=== PATIENT | female | born 1945 | race Caucasian/White ===

== ENCOUNTER 2019-12-28 10:19 | Outpatient (REF) | payer MEDICARE, SELFPAY ==
[2019-12-28 21:59] LABS: HCT 35.1 % (36.0-46.0); HGB 11.8 g/dL (11.2-15.7); MCH 31.6 pg (27.0-33.0); MCHC 33.6 % (32.0-36.0); MCV 94.1 fL (80-95); Platelet Count 223 10^3/uL (130-400); RBC 3.73 10^6/uL (3.93-5.22); RDW 12.3 % (11.7-14.6); RDW-SD 42.4 fL; WBC 6.39 10^3/uL (4.4-10.8)
[2019-12-28 22:15] LABS: Hemoglobin A1C 5.9 % (<5.7)
[2019-12-28 22:43] LABS: ALT 18 U/L (14-59); AST 17 U/L (15-37); Albumin 4.2 g/dL (3.4-5.0); Alkaline Phosphatase 46 U/L (46-116); Anion Gap 6.8 mmol/L (3-11); BUN 30 mg/dL (7-18); Bilirubin, Total 0.5 mg/dL (0.2-1.0); CO2 29.2 mmol/L (21.0-32.0); CREATININE 1.64 mg/dL (0.55-1.02); Calcium 9.7 mg/dL (8.5-10.1); Calculated LDL 119 mg/dL (<100); Chloride 100 mmol/L (98-107); Cholesterol 217 mg/dL (<200); Estimated GFR 30.46 (mL/min/1.73m2); Glucose 102 mg/dL (74-106); HDL Cholesterol 83 mg/dL (40-60); Potassium 4.4 mmol/L (3.5-5.1); Sodium 136 mmol/L (136-145); Total Protein 6.8 g/dL (6.4-8.2); Triglyceride 78 mg/dL (<150)
== END 2019-12-28 10:39 ==
LOC: NCHCN 10:19
PROVIDERS: PCP Family Medicine; Visit Provider Family Medicine
DX: I10 Essential (primary) hypertension (principal); E78.5 Hyperlipidemia, unspecified; N28.9 Disorder of kidney and ureter, unspecified; E66.09 Other obesity due to excess calories
CPT/HCPCS: 80053; 80061; 85027; 83036

== ENCOUNTER 2021-01-02 10:52 | Outpatient (REF) | payer MEDICARE, SELFPAY ==
[2021-01-02 22:19] LABS: Hemoglobin A1C 5.8 % (<5.7)
[2021-01-02 22:20] LABS: ALT 21 U/L (14-59); AST 15 U/L (15-37); Albumin 4.1 g/dL (3.4-5.0); Alkaline Phosphatase 54 U/L (46-116); Anion Gap 5.6 mmol/L (3-11); BUN 34 mg/dL (7-18); Bilirubin, Total 0.4 mg/dL (0.2-1.0); CO2 31.4 mmol/L (21.0-32.0); CREATININE 1.7 mg/dL (0.55-1.02); Calcium 9.1 mg/dL (8.5-10.1); Chloride 103 mmol/L (98-107); Estimated GFR 29.14 (mL/min/1.73m2); Glucose 105 mg/dL (74-106); Potassium 4.5 mmol/L (3.5-5.1); Sodium 140 mmol/L (136-145); Total Protein 6.5 g/dL (6.4-8.2)
== END 2021-01-02 10:53 | disposition home or self-care (01) ==
LOC: NCHCN 10:52
PROVIDERS: PCP Family Medicine; Visit Provider Family Medicine
DX: E11.9 Type 2 diabetes mellitus without complications (principal); I10 Essential (primary) hypertension
CPT/HCPCS: 80053; 83036

== ENCOUNTER 2022-03-21 16:17 | Outpatient (REF) | payer MEDICARE, SELFPAY ==
[2022-03-21 21:13] LABS: HGB 10.7 g/dL (11.2-15.7); MCH 31.7 pg (27.0-33.0); MCHC 33.4 % (32.0-36.0); MCV 95 fL (80-95); MPV 9.6 fL (8.0-11.0); Platelet Count 300 10^3/uL (130-400); RBC 3.38 10^6/uL (3.93-5.22); RDW 12.8 % (11.7-14.6); RDW-SD 44.9 fL; WBC 5.85 10^3/uL (4.4-10.8)
[2022-03-21 21:29] LABS: Iron 79 ug/dL (50-170); Total Iron Binding Capacity 302 ug/dL (250-450); Transferrin Sat 26 % (15-50)
[2022-03-21 21:54] LABS: ALT 22 U/L (14-59); AST 16 U/L (15-37); Albumin 3.7 g/dL (3.4-5.0); Alkaline Phosphatase 79 U/L (46-116); Anion Gap 8.1 mmol/L (3-11); BUN 18 mg/dL (7-18); Bilirubin, Total 0.4 mg/dL (0.2-1.0); CO2 27.9 mmol/L (21.0-32.0); CREATININE 1.2 mg/dL (0.55-1.02); Calcium 9.8 mg/dL (8.5-10.1); Chloride 96 mmol/L (98-107); Estimated GFR 46.33 (mL/min/1.73m2); Glucose 118 mg/dL (74-106); Sodium 132 mmol/L (136-145); Total Protein 6.7 g/dL (6.4-8.2); Vitamin B12 709 pg/mL (193-986)
== END 2022-03-21 16:18 | disposition home or self-care (01) ==
LOC: NCHCN 16:17
PROVIDERS: PCP Family Medicine; Visit Provider Family Medicine
DX: D64.9 Anemia, unspecified (principal); R53.1 Weakness; I10 Essential (primary) hypertension; N28.9 Disorder of kidney and ureter, unspecified; E87.1 Hypo-osmolality and hyponatremia; Z86.39 Personal history of other endocrine, nutritional and metabolic disease
CPT/HCPCS: 80053; 85027; 82607; 83540; 83550

== ENCOUNTER 2022-08-01 20:15 | Emergency (ER) | payer MEDICARE, SELFPAY ==
--- NOTE | 2022-08-01 20:15 | RT.EKG_ITS ---
APPROVED REPORT Exam: Resting ECG Reason for Exam: dizziness/HTN Patient Location: E HR:69 bpm ECG Measurements Heart Rate 69 AXIS [place] 172 P 79 QRSd 85 QRS 33 QT 400 T 52 QTc 428 Conclusion Sinus rhythm...normal P axis, V-rate 60- 99 sinus rhythm, normal axis, normal intevals, non ischemic
[2022-08-01 20:17] VITALS: BP 183/82; PULSE 74; RESP 18; TEMP 36.8; O2SAT 97
[2022-08-01 20:56] VITALS: BP 185/78; PULSE 75; RESP 14; O2SAT 96
[2022-08-01 21:09] LABS: Basophils % 0.5; Eosinophils % 3.3; HCT 34.3 % (36.0-46.0); HGB 11.3 g/dL (11.2-15.7); Lymphocytes % 23.9; MCH 30.9 pg (27.0-33.0); MCHC 32.9 % (32.0-36.0); MCV 94 fL (80-95); MPV 9.6 fL (8.0-11.0); Monocytes % 8.3; Neutrophils % 63.8; Platelet Count 222 10^3/uL (130-400); RBC 3.66 10^6/uL (3.93-5.22); RDW 13.2 % (11.7-14.6); RDW-SD 45.4 fL; WBC 6.14 10^3/uL (4.4-10.8)
[2022-08-01 21:10] LABS: Abs Immature Grans 0.01 10^3/uL (0.0-0.06); Absolute Basophil Count 0.03 10^3/uL (0.0-0.2); Absolute Lymphocyte Count 1.47 10^3/uL (1.2-3.4); Absolute Monocyte Count 0.51 10^3/uL (0.1-0.8); Absolute Neutrophil Count 3.92 10^3/uL (1.2-6.7); Immature Grans % 0.2
[2022-08-01] MEDS: Normal Saline 1,000 ML 1000 ML IV (21:10)
[2022-08-01 21:40] LABS: ALT 24 U/L (14-59); AST 18 U/L (15-37); Albumin 3.9 g/dL (3.4-5.0); Alkaline Phosphatase 57 U/L (46-116); Anion Gap 7.7 mmol/L (3-11); BUN 34 mg/dL (7-18); Bilirubin, Total 0.3 mg/dL (0.2-1.0); CO2 26.3 mmol/L (21.0-32.0); CREATININE 1.4 mg/dL (0.55-1.02); Calcium 9.2 mg/dL (8.5-10.1); Chloride 99 mmol/L (98-107); Estimated GFR 38.51 (mL/min/1.73m2); Glucose 113 mg/dL (74-106); Magnesium 1.8 mg/dL (1.8-2.4); Potassium 4.1 mmol/L (3.5-5.1); Sodium 133 mmol/L (136-145); Total Protein 7.2 g/dL (6.4-8.2); Troponin I < 50 ng/L (<or=60)
[2022-08-01 22:16] LABS: Bilirubin Negative (Negative); Blood Negative (Negative); Clarity Sl Cloudy (Clear); Glucose Negative (Negative); Ketones Negative (Negative); Leukocyte Esterase Small (Negative); Nitrite Negative (Negative); Urobilinogen 0.2 mg/dL (Up to 0.2); pH 5.5 (5-8)
--- NOTE | 2022-08-01 22:16 | ED.GENADUL_ITS ---
Discharge Plan Disposition Patient Disposition: Home Condition: Improving Discharge Details Clinical Impression: Acute dehydration Primary Care Provider: Lisa Don ED Provider: Nicky Romero Home Meds and New Rx's Prescriptions: Continued pravastatin 20 MG tablet 20 mg PO HS losartan 100 MG tablet 50 mg PO DAILY propranolol [Inderal XL] 120 MG capsule,extended release 24hr 160 mg PO DAILY benzonatate [Tessalon Perles] 100 MG capsule 100 mg PO QID PRN PRN (Reason: Cough) Qty: 15 0RF nitroglycerin 0.4 MG tablet, sublingual 0.4 mg Sublingual TID PRN PRN (Reason: Chest Pain) Qty: 25 0RF carvedilol 25 mg Tablet 25 mg PO BID Rx Instructions: must administer with a meal/food isosorbide dinitrate 30 mg Tablet 30 mg PO BID Rx Instructions: allow nitrate-free interval of 12-14 hrs per 24-hr period vit D3-folic [id number] 2,000-800-0.32 unit-mcg-mg Tablet PO fluticasone propionate 50 mcg/actuation [place],Suspension 1 spray INTRANASAL BID Rx Instructions: administer into each nostril Discharge Instructions Instructions: Dehydration (ED) Additional Instructions: Monitor your blood pressure and report to your primary care provider Continue your home medications as previously directed Referrals: Lisa Don [Primary Care Provider] - Medical Decision Making 76-year-old female patient After receiving 1 L of normal saline reporting her symptoms have completely resolved. She is safely really ambulated. Blood pressure noted to be elevated which is discussed with her she will continue to monitor continue her home medications as previously prescribed follow-up with primary care provider she will return here sooner for new or worsening symptoms Medical Records Medical records reviewed: Yes I reviewed the patient's medical records. Lab Data Lab results reviewed: Yes I reviewed the patient's lab results. Lab results narrative: Laboratory Results - last 24 hr 08/01/22 08/01/22 08/01/22 20:45 20:45 22:05 WBC 6.14 RBC 3.66 L Hgb 11.3 Hct 34.3 L MCV 94 MCH 30.9 MCHC 32.9 RDW 13.2 Plt Count 222 MPV 9.6 Immature Gran % 0.2 Neutrophils % 63.8 Lymphocytes % 23.9 Monocytes % 8.3 Eosinophils % 3.3 Basophils % 0.5 Nucleated RBC % 0.0 Absolute Neutrophils 3.92 Absolute Lymphocytes 1.47 Absolute Monocytes 0.51 Absolute Eosinophils 0.20 Absolute Basophils 0.03 Sodium 133 L Potassium 4.1 Chloride 99 Carbon Dioxide 26.3 Anion Gap 7.7 BUN 34 H Creatinine 1.4 H Est GFR (CKD-EPI 2020) 38.51 Glucose 113 H Calcium 9.2 Magnesium 1.8 Total Bilirubin 0.3 AST 18 ALT 24 Alkaline Phosphatase 57 Troponin I < 50 Total Protein 7.2 Albumin 3.9 Urine Color Yellow Urine Clarity Sl Cloudy Urine pH 5.5 Ur Specific [place] 1.010 Urine Protein Negative Urine Ketones Negative Urine Blood Negative Urine Nitrite Negative Urine Bilirubin Negative Urine Urobilinogen 0.2 Ur Leukocyte Esterase Small H Urine RBC Negative Urine WBC 10-20 H Ur Epithelial Cells Few Urine Crystals Negative Urine Bacteria Few Urine Casts Negative Urine Mucus Negative Ur Culture Indicated? Yes Urine Glucose Negative ECG Data Attestation: I personally reviewed and interpreted this ECG (s) as follows: (No acute ST segment changes) HPI General Mode of arrival: ambulatory . Date/Time Provider Initiated Documentation: 08/01/22 20:49 . Limitations to Documentation: no limitations . Information obtained by: patient . HPI Narrative: This is a 76-year-old female patient who worked outside all day long who has had feeling unsteady gait similar to a past history that she had many years ago associated with vertigo. She states that she has been having seasonal allergies and feels like her ears have been plugged. She takes a antihistamine for this. She has had no fever no chills no chest pain no shortness of breath no abdominal pain no nausea or vomiting Related Data Home Medications Medication Instructions Recorded Confirmed benzonatate 100 mg capsule 100 mg PO QID PRN PRN Cough ##15 08/03/13 (Anish Moreno) losartan 100 mg tablet 50 mg PO DAILY 08/03/13 08/03/13 nitroglycerin 0.4 mg sublingual 0.4 mg sublingual TID PRN PRN 08/03/13 tablet Chest Pain ##25 pravastatin 20 mg tablet 20 mg PO HS 08/03/13 08/03/13 propranolol 120 mg 160 mg PO DAILY 08/03/13 08/03/13 capsule,extended release 24 hr (Inderal XL) carvedilol 25 mg tablet 25 mg PO BID 08/01/22 08/01/22 fluticasone propionate 50 1 spray intranasal BID 08/01/22 08/01/22 mcg/actuation nasal spray,suspension isosorbide dinitrate 30 mg tablet 30 mg PO BID 08/01/22 08/01/22 vit D3-folic acid-vit B2-B6-B12 tab PO 08/01/22 2,000 unit-800 mcg-0.32 mg tablet Previous Rx's Medication Instructions Recorded benzonatate 100 mg capsule 100 mg PO QID PRN PRN Cough ##15 08/03/13 (Anish Moreno) nitroglycerin 0.4 mg sublingual 0.4 mg sublingual TID PRN PRN 08/03/13 tablet Chest Pain ##25 Allergies Allergy/AdvReac Type Severity Reaction Status Date / Time Penicillins Allergy Severe Agitation Unverified 08/01/22 21:06 prochlorperazine edisylate Allergy Severe Swelling/Ed Unverified 08/01/22 21:06 [From Compazine] haim prochlorperazine maleate Allergy Severe Swelling/Ed Unverified 08/01/22 21:06 [From Compazine] haim adhesive Allergy Unverified 08/01/22 21:06 bee venom protein (honey bee) Allergy Unverified 08/01/22 21:06 codeine Allergy Unverified 08/01/22 21:06 Iodinated Contrast Media Allergy Unverified 08/01/22 21:06 amlodipine AdvReac Unverified 08/01/22 21:06 chocolate flavor AdvReac Unverified 08/01/22 21:06 colchicine AdvReac Unverified 08/01/22 21:06 latex AdvReac Unverified 08/01/22 21:06 prochlorperazine AdvReac Unverified 08/01/22 21:06 [From Compazine] General Stated Complaint: Dizzy/Sync JACK: 3 Review of Systems All systems reviewed & are unremarkable except as noted in HPI and below PFSH All Active Problems (Updated 08/01/22 @ 22:25 by Nicky Romero NP) Acute dehydration (Acute) Social History Smoking/Tobacco Use Status: Never Smoking risk assessment performed?: Yes Alcohol Intake: former Drug use: Never Do you feel safe at home: Yes Do you feel safe in your relationship?: Yes Exam Const General: cooperative, healthy appearing, comfortable, no acute distress and well developed Nutritional Appearance: average body habitus Orientation: alert, awake and oriented x3 HENMT Head: normal to inspection, normocephalic and atraumatic Mouth: moist mucous membranes abnormal (Dry) Chest Chest: normal inspection of the chest Resp Effort & Inspection: normal respiratory effort Auscultation: clear to auscultation bilaterally Cardio Rate: regular rate Rhythm: regular rhythm GI Inspection: normal to inspection Palpation: soft Auscultation: normal bowel sounds Skin General skin exam: no rashes or lesions noted Neuro General: patient alert, patient awake, patient oriented x3 and no focal motor deficits Cognition: normal cognition Speech: speech normal Gait: normal gait Motor: muscle tone normal throughout Sensory Exam: no sensory deficits noted Extrem General: normal to inspection and full ROM Course Vital Signs Vital signs: Vital Signs Temperature 36.8 C 08/01/22 20:17 Pulse 74 08/01/22 20:17 Respiratory Rate 18 08/01/22 20:17 Blood Pressure 183/82 H 08/01/22 20:17 Pulse Oximetry 97 08/01/22 20:17 Temperature 36.8 C 08/01/22 20:17 Temperature Source Skin 08/01/22 20:17 Pulse 75 08/01/22 20:56 Respiratory Rate 14 08/01/22 20:56 Respiratory Effort Normal 08/01/22 20:36 Blood Pressure 185/78 H 08/01/22 20:56 Blood Pressure Position Sitting 08/01/22 20:17 Pulse Oximetry 96 08/01/22 20:56 Oxygen Delivery Method Room Air 08/01/22 20:56 Oxygen Flow Rate 0 08/01/22 20:56 Pain Level 0 08/01/22 20:17 Comment takes BP pills 10am and 10pm 08/01/22 20:17 Lab/Test Results Lab/Test Results: Laboratory Tests Range/Units 08/01/22 08/01/22 20:45 20:45 WBC (4.4-10.8) 10^3/uL 6.14 RBC (3.93-5.22) 10^6/uL 3.66 L Hgb (11.2-15.7) g/dL 11.3 Hct (36.0-46.0) % 34.3 L MCV (80-95) fL 94 MCH (27.0-33.0) pg 30.9 MCHC (32.0-36.0) % 32.9 RDW (11.7-14.6) % 13.2 Plt Count (130-400) 10^3/uL 222 MPV (8.0-11.0) fL 9.6 Immature Gran % 0.2 Neutrophils % 63.8 Lymphocytes % 23.9 Monocytes % 8.3 Eosinophils % 3.3 Basophils % 0.5 Nucleated RBC % (0.0-0.3) % 0.0 Absolute Neutrophils (1.2-6.7) 10^3/uL 3.92 Absolute Lymphocytes (1.2-3.4) 10^3/uL 1.47 Absolute Monocytes (0.1-0.8) 10^3/uL 0.51 Absolute Eosinophils (0.0-0.7) 10^3/uL 0.20 Absolute Basophils (0.0-0.2) 10^3/uL 0.03 Sodium (136-145) mmol/L 133 L Potassium (3.5-5.1) mmol/L 4.1 Chloride (98-107) mmol/L 99 Carbon Dioxide (21.0-32.0) mmol/L 26.3 Anion Gap (3-11) mmol/L 7.7 BUN (7-18) mg/dL 34 H Creatinine (0.55-1.02) mg/dL 1.4 H Est GFR (CKD-EPI 2020) (mL/min/1.73m2) 38.51 Glucose (74-106) mg/dL 113 H Calcium (8.5-10.1) mg/dL 9.2 Magnesium (1.8-2.4) mg/dL 1.8 Total Bilirubin (0.2-1.0) mg/dL 0.3 AST (15-37) U/L 18 ALT (14-59) U/L 24 Alkaline Phosphatase (46-116) U/L 57 Troponin I (<or=60) ng/L < 50 Total Protein (6.4-8.2) g/dL 7.2 Albumin (3.4-5.0) g/dL 3.9
[2022-08-01 22:18] LABS: Bacteria Few HPF (Negative); C & S Indicated? Yes; Casts Negative LPF (Negative); Crystals Negative HPF (Negative); Epithelial Cells Few HPF (Negative); Mucus Negative (Negative); RBC Negative HPF (0-2)
[2022-08-01 22:31] VITALS: BP 185/78; PULSE 75; RESP 14; TEMP 36.8; O2SAT 96
== END 2022-08-01 22:34 | disposition home or self-care (01) ==
LOC: ER 22:34
PROVIDERS: Emergency Provider Nurse Practitioner Acute Care; PCP Family Medicine
DX: E86.0 Dehydration (principal)
CPT/HCPCS: 36415; 80053; 93005; 96360; 99284; 81003; 81015; 83735; 84484; 85025; 87086; 93010

== ENCOUNTER 2022-09-01 17:19 | Outpatient (REF) | payer MEDICARE, SELFPAY ==
[2022-09-01 23:29] LABS: Anion Gap 6.8 mmol/L (3-11); BUN 38 mg/dL (7-18); CO2 29.2 mmol/L (21.0-32.0); CREATININE 1.3 mg/dL (0.55-1.02); Calcium 9.4 mg/dL (8.5-10.1); Chloride 101 mmol/L (98-107); Estimated GFR 42.09 (mL/min/1.73m2); Glucose 102 mg/dL (74-106); Potassium 4.8 mmol/L (3.5-5.1); Sodium 137 mmol/L (136-145)
== END 2022-09-01 17:20 | disposition home or self-care (01) ==
LOC: NCHCN 17:19
PROVIDERS: PCP Family Medicine; Visit Provider Family Medicine
DX: I10 Essential (primary) hypertension (principal)
CPT/HCPCS: 80048; 83735